=== PATIENT | male | born 1980 | race Caucasian/White ===

== ENCOUNTER 2021-11-02 15:45 | Emergency (ER) | payer SELFPAY ==
[~2021-11-02] VITALS: Ht 180.3 cm; Wt 90.7 kg
[2021-11-02] MEDS ORDERED: VENTOLIN HFA18 GM INH (18:37)
== END 2021-11-02 19:05 | disposition home or self-care (01) ==
LOC: ED 15:45
DX: U07.1 COVID-19 (principal); J45.909 Unspecified asthma, uncomplicated; Z88.0 Allergy status to penicillin
CPT/HCPCS: 99284; A9270; C9803; U0003

== ENCOUNTER 2024-04-13 10:10 | Emergency (ER) | payer SELFPAY ==
[~2024-04-13] VITALS: Ht 180.3 cm; Wt 94.2 kg
[~2024-04-13 10:10] MED LIST: VENTOLIN HFA18 GM INH
[2024-04-13] MEDS ORDERED: TETRACAINE HCL 0.5% 4 ML BTL OD ONE (11:00)
[2024-04-13] MEDS ORDERED: FLUORESCEIN SOD 1 EA STRP OD ONE (11:00)
[2024-04-13] MEDS ORDERED: OCUFLOX5 ML OD (11:21)
[2024-04-13 11:29] VITALS: BP 129/88
== END 2024-04-13 11:29 | disposition home or self-care (01) ==
LOC: ED 10:10
DX: S05.01XA Injury of conjunctiva and corneal abrasion without foreign body, right eye, initial encounter (principal); X58.XXXA Exposure to other specified factors, initial encounter; J45.909 Unspecified asthma, uncomplicated; Z88.0 Allergy status to penicillin
CPT/HCPCS: 99283

== ENCOUNTER 2024-07-03 12:26 | Emergency (ER) | payer SELFPAY ==
[~2024-07-03] VITALS: Ht 180.3 cm; Wt 93.8 kg
[~2024-07-03 12:26] MED LIST changes: +OCUFLOX5 ML OD
[2024-07-03] MEDS ORDERED: QVAR REDIHALE10.6 GM INH (13:52)
[2024-07-03 13:59] VITALS: BP 133/84
== END 2024-07-03 14:01 | disposition home or self-care (01) ==
LOC: ED 12:26
DX: J45.901 Unspecified asthma with (acute) exacerbation (principal); Z88.0 Allergy status to penicillin
CPT/HCPCS: 99283